=== PATIENT | male | born 1995 | race Caucasian/White ===

== ENCOUNTER 2024-02-20 19:27 | Emergency (ER) | payer MEDICARE, BC, SELFPAY ==
--- NOTE | 2024-02-20 19:22 | ECG_ITS ---
APPROVED REPORT Exam: Resting ECG HR:84 bpm ECG Measurements Heart Rate 84 AXES IL 164 P 23 QRSd 100 QRS 39 QT 343 T 27 QTc 384 Conclusion SINUS RHYTHM NORMAL ECG Electronically signed by : VICKY RESENDIZ, 02/21/2024 00:05:15
[2024-02-20 19:27] VITALS: BP 132/89; PULSE 85; RESP 20; TEMP 37; O2SAT 96; BMI 28.7
--- NOTE | 2024-02-20 19:36 | ED_ITS ---
<Statement entered by Imelda Zuniga DO - 02/20/24 23:39> I was consulted by the SAMANTHA, and we discussed the complexity of the problems being addressed. I approved the treatment and management plan for this patient's care in the emergency department, thus performing a substantive portion of the medical decision making. Imelda Zuniga DO Discharge Plan Disposition Patient Disposition: Home, Self-Care Condition: Good Prescriptions Prescriptions: New doxycycline hyclate 100 mg capsule 100 mg PO BID 10 Days Qty: 20 0RF prednisone 50 mg tablet 50 mg PO DAILY 5 Days Qty: 5 0RF Referrals Follow up/Referrals: Provider,Referral, MD [Primary Care Provider] - See instructions Activity Restrictions/Add. Instructions Additional Instructions/Restrictions: Continue taking antibiotics and steroids to they are gone. Follow-up with your PCP within 48 hours for recheck. Return to ER for any worsening signs or symptoms Clinical Impressions Clinical Impression: Multifocal pneumonia Instructions Patient Instructions: DI for Atypical Pneumonia Print Language Print Language: Chinese Discharge ED Provider: Imelda Zuniga HPI <FREDERICK Betancourt - Last Filed: 02/20/24 22:28> General Stated Complaint: CP Time Seen by Provider: 02/20/24 19:36 History of Present Illness HPI narrative: Patient presents via EMS from [place] reportedly for chest pain. However patient states that he has been feeling poorly and lay down to take a nap. When he awoke he felt worse with bodyaches headache and chest discomfort. He states his chest discomfort is mainly with breathing. He denies cardiac chest pain fever chills hemoptysis hematochezia melena nausea vomiting diarrhea shortness of breath. Related Data Previous Rx's ?Medication ?Instructions ?Recorded doxycycline hyclate 100 mg capsule 100 mg PO BID 10 days #20 caps 02/20/24 prednisone 50 mg tablet 50 mg PO DAILY 5 days #5 tabs 02/20/24 Allergies Allergy/AdvReac Type Severity Reaction Status Date / Time ibuprofen Allergy Unknown Verified 02/20/24 20:25 allergy reaction PFSH <FREDERICK Betancourt - Last Filed: 02/20/24 22:28> [facility] Disclaimer: The information contained in this section may have been updated after the patient was seen, as this information can be updated by other users. Social History Smoking Status: Current every day smoker alcohol intake: never current occupational status: disabled Travel in the last 8 weeks: None <FREDERICK Betancourt - Last Filed: 02/20/24 22:28> ROS Obtained: Yes Systems reviewed as appropriate & no additional complaints except as documented Physical Exam <FREDERICK Betancourt - Last Filed: 02/20/24 22:28> General General appearance: alert and in no apparent distress Respiratory Respiratory exam: Present normal lung sounds bilaterally Cardiovascular Cardiovascular exam: Present regular rate Neurological Exam Neurological exam: Present alert and oriented X3 HEART Score <FREDERICK Betancourt - Last Filed: 02/20/24 22:28> HEART Score HEART Score assessment performed?: Yes History (anamnesis): Slightly suspicious ECG: Normal Age: <45 years Risk factors: 1-2 risk factors Troponin: </= normal limit HEART Score: 1 <Imelda Zuniga DO - Last Filed: 02/20/24 21:46> HEART Score HEART Score: 1 Critical Care <FREDERICK Betancourt - Last Filed: 02/20/24 22:28> Critical Care Time Critical Care Time: No Medical Decision Making <FREDERICK Betancourt - Last Filed: 02/20/24 22:28> Medical Records Medical records reviewed: Yes I reviewed the patient's medical records. Jairo Inquiry Pt receiving controlled substance: No Lab Data Lab results reviewed: Yes I reviewed the patient's lab results. Labs: Lab Results 02/20/24 20:16: SARS-CoV-2 (PCR) Not detected, Influenza A Untype (PCR) Not detected, Influenza Type B (PCR) Not detected 02/20/24 21:37: WBC 7.9, RBC 5.41, Hgb 13.7 L, Hct 41.6 L, MCV 76.9 L, MCH 25.4 L, MCHC 33.0, RDW 16.0, Plt Count 252, MPV 6.8 L, Neut % (Auto) 47.2, Lymph % (Auto) 41.8, [place] % (Auto) 5.7, Eos % (Auto) 3.7, Baso % (Auto) 1.5, Neut # (Auto) 3.7, Lymph # (Auto) 3.3, [place] # (Auto) 0.5, Eos # (Auto) 0.3, Baso # (Auto) 0.1, Sodium 140, Potassium 3.8, Chloride 109 H, Carbon Dioxide 20 L, Anion Gap 14.8, BUN 10, Creatinine 1.00, Estimated GFR 88, Est GFR ( Amer) 106, Glucose 86, Calcium 8.9, Magnesium 2.3, Total Bilirubin 0.5, AST 30, ALT 25, Alkaline Phosphatase 54, Troponin I < 0.01, Total Protein 7.6, Albumin 4.3, Globulin 3.3 H, Albumin/Globulin Ratio 1.3, Lipase 126 02/20/24 21:37 02/20/24 21:37 Response Orders (Tests/Meds): ED MEDICATIONS Generic Name Dose Route Start Last Admin Trade Name Freq PRN Reason Stop Dose Admin Doxycycline Hyclate 100 mg 02/20/24 22:21 Doxycycline Hycl 100 Mg Tablet PO 02/20/24 22:22 ONCE ONE Discontinued Medications Generic Name Dose Route Start Last Admin Trade Name Freq PRN Reason Stop Dose Admin Acetaminophen 1,000 mg 02/20/24 19:51 02/20/24 20:12 Acetaminophen 500mg Tab PO 02/20/24 19:52 1,000 mg ONCE ONE Administration Azithromycin 500 mg 02/20/24 22:04 Azithromycin 250mg Tablet PO 02/20/24 22:05 ONCE ONE Ibuprofen 800 mg 02/20/24 19:51 02/20/24 20:25 Ibuprofen 400 Mg Tablet PO 02/20/24 19:52 Not Given ONCE ONE Prednisone 60 mg 02/20/24 22:04 Prednisone 20mg Tab PO 02/20/24 22:05 ONCE ONE ORDERS Category Date Time Status CT chest wo con Stat Cat Scan 02/20/24 19:52 Completed CBC w/Auto Diff [Complete Blood Count Auto Diff] Stat Lab 02/20/24 21:37 Completed CMP [Comprehensive Metabolic Panel] Stat Lab 02/20/24 21:37 Completed Lipase Stat Lab 02/20/24 21:37 Completed Magnesium Stat Lab 02/20/24 21:37 Completed Rapid PCR Covid and Flu A/B Stat Lab 02/20/24 20:16 Completed Trop I [Troponin I] Stat Lab 02/20/24 21:37 Completed Troponin I Q3H Lab 02/20/24 23:00 Ordered Troponin I Q3H Lab 02/21/24 02:00 Ordered MDM Narrative Medical Decision Narrative: In summary patient is a 28-year-old male who presents to the emergency department for evaluation of myalgias chest pain with breathing headache. Patient is hemodynamically stable upon arrival, afebrile. Physical exam is remarkable for diaphoretic skin but a well-nourished well-developed male who currently is in no acute distress there is no reproducible chest pain on exam. Breath sounds are clear and equal bilaterally to the bases without adventitious sounds. There is no increased work of breathing or accessory muscle use. Heart sounds are normal patient appears to be in normal sinus rhythm on the bedside monitor.. Differential diagnosis includes ACS versus viral bacterial infection etc. Initial workup will be conducted with hematologic labs plain film chest x- ray respiratory swabs. Initial interventions include Toradol Tylenol. Initial workup reviewed by me shows that his hematologic labs are nonactionable, with a normal white count no shift, undetectable troponin, negative COVID and flu, and my informal interpretation of his plain film chest x-ray shows groundglass opacities consistent with atypical infection or bronchitis or both however patient has no objective findings of wheezing or respiratory distress. Additionally as patient's symptoms began several hours prior to presentation and undetectable troponin is low risk and low yield of potential. Cardiac and resolution of symptoms suggest pulmonary primary focus. Upon repeat evaluation the patient reported improvement in his constitutional symptoms. Given this patient is appropriate for discharge with a prescription for steroids and doxycycline with close follow-up with his PCP strict return precaution. <Imelda Zuniga, DO - Last Filed: 02/20/24 21:46> Lab Data Labs: Lab Results 02/20/24 20:16: SARS-CoV-2 (PCR) Not detected, Influenza A Untype (PCR) Not detected, Influenza Type B (PCR) Not detected 02/20/24 21:37: WBC 7.9, RBC 5.41, Hgb 13.7 L, Hct 41.6 L, MCV 76.9 L, MCH 25.4 L, MCHC 33.0, RDW 16.0, Plt Count 252, MPV 6.8 L, Neut % (Auto) 47.2, Lymph % (Auto) 41.8, [place] % (Auto) 5.7, Eos % (Auto) 3.7, Baso % (Auto) 1.5, Neut # (Auto) 3.7, Lymph # (Auto) 3.3, [place] # (Auto) 0.5, Eos # (Auto) 0.3, Baso # (Auto) 0.1, Sodium 140, Potassium 3.8, Chloride 109 H, Carbon Dioxide 20 L, Anion Gap 14.8, BUN 10, Creatinine 1.00, Estimated GFR 88, Est GFR ( Amer) 106, Glucose 86, Calcium 8.9, Magnesium 2.3, Total Bilirubin 0.5, AST 30, ALT 25, Alkaline Phosphatase 54, Troponin I < 0.01, Total Protein 7.6, Albumin 4.3, Globulin 3.3 H, Albumin/Globulin Ratio 1.3, Lipase 126 Response Orders (Tests/Meds): ED MEDICATIONS Generic Name Dose Route Start Last Admin Trade Name Freq PRN Reason Stop Dose Admin Doxycycline Hyclate 100 mg 02/20/24 22:21 Doxycycline Hycl 100 Mg Tablet PO 02/20/24 22:22 ONCE ONE Discontinued Medications Generic Name Dose Route Start Last Admin Trade Name Freq PRN Reason Stop Dose Admin Acetaminophen 1,000 mg 02/20/24 19:51 02/20/24 20:12 Acetaminophen 500mg Tab PO 02/20/24 19:52 1,000 mg ONCE ONE Administration Azithromycin 500 mg 02/20/24 22:04 Azithromycin 250mg Tablet PO 02/20/24 22:05 ONCE ONE Ibuprofen 800 mg 02/20/24 19:51 02/20/24 20:25 Ibuprofen 400 Mg Tablet PO 02/20/24 19:52 Not Given ONCE ONE Prednisone 60 mg 02/20/24 22:04 Prednisone 20mg Tab PO 02/20/24 22:05 ONCE ONE ORDERS Category Date Time Status CT chest wo con Stat Cat Scan 02/20/24 19:52 Completed CBC w/Auto Diff [Complete Blood Count Auto Diff] Stat Lab 02/20/24 21:37 Completed CMP [Comprehensive Metabolic Panel] Stat Lab 02/20/24 21:37 Completed Lipase Stat Lab 02/20/24 21:37 Completed Magnesium Stat Lab 02/20/24 21:37 Completed Rapid PCR Covid and Flu A/B Stat Lab 02/20/24 20:16 Completed Trop I [Troponin I] Stat Lab 02/20/24 21:37 Completed Troponin I Q3H Lab 02/20/24 23:00 Ordered Troponin I Q3H Lab 02/21/24 02:00 Ordered ECG Data Tracing #1: Attestation: I reviewed this ECG and interpreted as documented below: ECG Narrative: Normal sinus rhythm with a ventricular rate of [address] changes concerning for ischemia. Normal axis and intervals. ECG initial impression date: 02/20/24 ECG initial impression time: 19:23
--- NOTE | 2024-02-20 19:52 | CT_ITS ---
PROCEDURE INFORMATION: Exam: CT Chest Without Contrast; Diagnostic Exam date and time: 02/20/2024 7:59 PM Age: 28 years old Clinical indication: Other: Chest pain TECHNIQUE: Imaging protocol: Diagnostic computed tomography of the chest without contrast. Radiation optimization: All CT scans at this facility use at least one of these dose optimization techniques: automated exposure control; mA and/or kV adjustment per patient size (includes targeted exams where dose is matched to clinical indication); or iterative reconstruction. COMPARISON: No relevant prior studies available. FINDINGS: Limitations: Study is technically limited due to motion artifact. Lungs: Lung volumes are decreased likely in part due to body habitus. There are scattered peribronchial micronodular opacities within the mid-lower lung zones likely secondary to bronchiolitis. Small calcified granuloma right lung base. Pleural spaces: Unremarkable. No pneumothorax. No pleural effusion. Heart: Heart is borderline enlarged. No coronary artery calcifications no pericardial effusion. Lymph nodes: Unremarkable. No enlarged lymph nodes. Vasculature: Unremarkable. No aortic aneurysm. Diaphragm: Moderate-sized hiatal hernia. Bones/joints: Unremarkable. No acute fracture. Soft tissues: Unremarkable. IMPRESSION: 1. Scattered bronchiolitis mid-lower lung zones fairly symmetric in distribution likely infectious in nature secondary to aspiration. 2. Moderate-sized hiatal hernia. 3. Borderline cardiomegaly.
[2024-02-20] MEDS: ACETAMINOPHEN 500MG TAB 1000 MG PO (20:12)
[2024-02-20 20:21] LABS: Coronavirus 19, PCR Not Detected (NotDetected); Influenza A, PCR Not Detected (NotDetected); Influenza B, PCR Not Detected (NotDetected)
[2024-02-20 21:46] LABS: Basophils # 0.1 K/mm3 (0-0.2); Basophils % 1.5 % (0.1-2.0); Eosinophils # 0.3 K/mm3 (0.0-0.4); Eosinophils % 3.7 % (0.1-12.0); Hematocrit 41.6 % (42.0-52.0); Hemoglobin 13.7 g/dL (14.1-18.0); Lymphocytes # 3.3 K/mm3 (0.7-4.5); Lymphocytes % 41.8 % (10-50); Mean Corpuscular Hemoglobin 25.4 pg (27.0-31.2); Mean Corpuscular Volume 76.9 fl (80-94); Mean Platelet Volume 6.8 fl (7.4-10.4); Monocytes # 0.5 K/mm3 (0.1-1.0); Monocytes % 5.7 % (1.7-9.3); Neutrophils # 3.7 K/mm3 (1.8-7.8); Neutrophils % 47.2 % (37.0-80.0); Platelet Count 252 K/mm3 (142-424); Red Blood Count 5.41 M/mm3 (4.60-6.20); White Blood Count 7.9 K/mm3 (4.8-10.8)
[2024-02-20 21:59] LABS: Alanine Aminotransferase 25 U/L (12-78); Albumin Level 4.3 g/dl (3.5-5.0); Albumin/Globulin Ratio 1.3 (1.1-1.8); Alkaline Phosphatase 54 U/L (38-126); Anion Gap 14.8 mEq/L (5-15); Aspartate Amino Transferase 30 U/L (17-59); Bilirubin,Total 0.5 mg/dl (0.2-1.3); Blood Urea Nitrogen 10 mg/dl (9-20); Calcium 8.9 mg/dl (8.4-10.2); Carbon Dioxide 20 mmol/L (22.0-30.0); Chloride 109 mmol/L (98-107); Estimated Glomerular Filt Rate 88 ml/min (>60); GFR (African American) 106 ML/MIN (>60); Globulin 3.3 g/dL (1.3-3.2); Glucose 86 mg/dl (74-100); Lipase 126 U/L (23-300); Magnesium 2.3 mg/dl (1.6-2.3); Potassium 3.8 mmoL/L (3.5-5.1); Sodium 140 mmol/L (136-145); Total Protein,Serum 7.6 g/dl (6.3-8.2)
[2024-02-20 22:17] LABS: Troponin I < 0.01 ng/ml (0.00-0.034)
[2024-02-20] MEDS: predniSONE 20MG TAB 60 MG PO (22:28)
[2024-02-20] MEDS: DOXYCYCLINE HYCL 100 MG TABLET PO (22:28)
[2024-02-20] MEDS: AZITHROMYCIN 250MG TABLET 500 MG PO (22:31)
--- NOTE | 2024-02-20 22:57 | PC.NURSE ---
Called [facility] to notify them pt is ready for d/c
[2024-02-20 23:19] VITALS: BP 122/80; PULSE 78; RESP 18; TEMP 36.7; O2SAT 96
[2024-02-20 23:34] LABS: HIV (1&2) Antibody Rapid NONREACTIVE (NONREACTIVE)
--- NOTE | 2024-02-21 09:26 | PC.NURSE ---
accessed chart for facesheet for EMS at this time.
[2024-02-22 10:26] LABS: HCV Ab Non Reactive (Non Reactive)
== END 2024-02-20 23:22 | disposition home or self-care (01) ==
PROVIDERS: Physician Assistant; Emergency Provider Emergency Medicine
DX: J18.9 Pneumonia, unspecified organism (principal); R07.89 Other chest pain; M79.10 Myalgia, unspecified site; R51.9 Headache, unspecified; Z72.0 Tobacco use
CPT/HCPCS: 71250; 80053; 83690; 83735; 84484; 85025; 86803; 87389; 87636; 93005; 99284

== ENCOUNTER 2024-02-29 15:10 | Emergency (ER) | payer MEDICARE, BC, SELFPAY ==
--- NOTE | 2024-02-29 15:07 | ED_ITS ---
<Statement entered by Imelda Zuniga DO - 02/29/24 17:10> I was consulted by the SAMANTHA, and we discussed the complexity of the problems being addressed. I approved the treatment and management plan for this patient's care in the emergency department, thus performing a substantive portion of the medical decision making. Imelda Zuniga DO Discharge Plan Disposition Patient Disposition: Home, Self-Care Condition: Good Chief Complaint: Headache Prescriptions Prescriptions: No Action doxycycline hyclate 100 mg capsule 100 mg PO BID 10 Days Qty: 20 0RF prednisone 50 mg tablet 50 mg PO DAILY 5 Days Qty: 5 0RF Activity Restrictions/Add. Instructions Additional Instructions/Restrictions: Continue to take your headache regimen as already prescribed. Follow-up with your PCP within 48 hours for no improvement or worsening signs or symptoms or recurrence or return to the ER as needed. Clinical Impressions Clinical Impression: Headache, migraine Instructions Patient Instructions: DI for Migraine Print Language Print Language: Azeri Discharge ED Provider: Imelda Zuniga General Adult HPI General Chief complaint: Headache Stated complaint: Headache for 3 days Time Seen by Provider: 02/29/24 15:12 History of Present Illness HPI narrative: Patient presents for evaluation of a migraine headache. Patient has a longstanding history of migraines and takes Topamax daily both for his seizures and for migraine prevention. He has had a right-sided hemispherical headache typical of his other migraines however it is been refractory to his normal regimen of Tylenol and patient cannot take ibuprofen due to adverse reactions. He denies any vision changes changes level of consciousness but does report phonophobia and photophobia. He denies any recent illness chest pain shortness of breath fever chills hemoptysis hematochezia melena vomiting or diarrhea but does report some nausea when it is really bad . Related Data Previous Rx's ?Medication ?Instructions ?Recorded doxycycline hyclate 100 mg capsule 100 mg PO BID 10 days #20 caps 02/20/24 prednisone 50 mg tablet 50 mg PO DAILY 5 days #5 tabs 02/20/24 Allergies Allergy/AdvReac Type Severity Reaction Status Date / Time ibuprofen Allergy Unknown Verified 02/20/24 20:25 allergy reaction [facility] Disclaimer: The information contained in this section may have been updated after the patient was seen, as this information can be updated by other users. Social History (Updated 02/20/24 @ 22:28 by FREDERICK Betancourt) Smoking Status: Current every day smoker alcohol intake: never current occupational status: disabled Travel in the last 8 weeks: None ROS Obtained: Yes Systems reviewed as appropriate & no additional complaints except as documented Physical Exam General General appearance: alert and in no apparent distress Respiratory Respiratory exam: Present normal lung sounds bilaterally Cardiovascular Cardiovascular exam: Present regular rate Neurological Exam Neurological exam: Present alert and oriented X3 Medical Decision Making Medical Records Medical records reviewed: Yes I reviewed the patient's medical records. Screening: Per USPSTF and CDC recommendations, given the prevalence of disease in our region, it is our hospital?s policy to screen for HIV and viral Hepatitis for all patients aged 18 and over and those with ongoing risk factors. Jairo Inquiry Pt receiving controlled substance: No Vital Signs: 02/29/24 15:10 02/29/24 15:15 Temperature 98.2 F Temperature Source Oral Pulse Rate 84 Pulse Rate [Right Radial] 101 H Respiratory Rate 20 Blood Pressure 118/81 Blood Pressure [Right Arm] 124/87 Blood Pressure Mean [Right Arm] 99 02 Sat by Pulse Oximetry 97 97 Oxygen Delivery Method Room Air Orders (Tests/Meds): ED MEDICATIONS Generic Name Dose Route Start Last Admin Trade Name Freq PRN Reason Stop Dose Admin Sodium Chloride 1,000 mls @ 999 mls/hr 02/29/24 15:12 02/29/24 15:30 Sod Chlor 0.9% 1000ml Bag IV 02/29/24 16:12 999 mls/hr .Q1H1M ONE Administration Discontinued Medications Generic Name Dose Route Start Last Admin Trade Name Freq PRN Reason Stop Dose Admin Dexamethasone Sodium Phosphate 10 mg 02/29/24 15:12 02/29/24 15:30 Dexamethasone 4mg/Ml 5ml Mdv IV 02/29/24 15:13 10 mg ONCE ONE Administration Diphenhydramine HCl 50 mg 02/29/24 15:12 02/29/24 15:30 Diphenhydramine 50mg/Ml Vial IV 02/29/24 15:13 50 mg ONCE ONE Administration Methocarbamol 500 mg 02/29/24 15:12 02/29/24 15:30 Methocarbamol 500mg Tablet PO 02/29/24 15:13 500 mg ONCE ONE Administration Prochlorperazine Edisylate 10 mg 02/29/24 15:12 11/20/24 15:30 Prochlorperazine 10mg/2ml Vial IV 02/29/24 15:13 10 mg ONCE ONE Administration Medical Decision Narrative: In summary patient is a 28-year-old male who presents to the emergency department for evaluation of migraine headache. Patient is hemodynamically stable upon arrival, afebrile. Physical exam is remarkable for photophobia and phonophobia but Candice Coma Score 15 patient is awake alert and oriented person place circumstance has no focal neurologic deficits no nuchal rigidity pupils equal round reactive to light with no pain with extraocular movements. Differential diagnosis includes flare of chronic migraine versus headache of other type etc. Initial workup with labs and imaging was considered however there are no red flags that this is anything other than a flare of his chronic migraines thus deferred further workup. Initial interventions include crystalloid bolus Decadron diphenhydramine Robaxin and Compazine. Upon repeat evaluation patient had complete resolution of his headache after initial intervention. Given this patient is appropriate for discharge with follow-up with his PCP in 48 hours for recheck for any worsening signs or symptoms. Critical Care Critical Care Time Critical Care Time: No
[2024-02-29 15:10] VITALS: BP 124/87; PULSE 101; RESP 20; TEMP 36.8; O2SAT 97; BMI 38.7
[2024-02-29 15:15] VITALS: BP 118/81; PULSE 84; O2SAT 97
[2024-02-29] MEDS: PROCHLORPERAZINE 10MG/2ML VIAL 10 MG IV (15:30)
[2024-02-29] MEDS: DEXAMETHASONE 4MG/ML 5ML MDV 10 MG IV (15:30)
[2024-02-29] MEDS: METHOCARBAMOL 500MG TABLET 500 MG PO (15:30)
[2024-02-29] MEDS: 0.9 % SODIUM CHLORIDE 1000ML 1,000 ML 999 ML IV (15:30)
[2024-02-29] MEDS: diphenhydrAMINE 50MG/ML VIAL 50 MG IV (15:30)
[2024-02-29 16:14] VITALS: BP 118/82; PULSE 77; RESP 18; TEMP 36.7; O2SAT 98
--- NOTE | 2024-02-29 16:17 | PC.NURSE ---
Notified [facility] that patient is ready for discharge.
== END 2024-02-29 16:40 | disposition home or self-care (01) ==
PROVIDERS: Emergency Provider Emergency Medicine
DX: G43.909 Migraine, unspecified, not intractable, without status migrainosus (principal); R11.0 Nausea
CPT/HCPCS: 96361; 96374; 96375; 99283; J0780; J1100; J1200; J7030

== ENCOUNTER 2024-03-12 19:11 | Emergency (ER) | payer MEDICARE, BC, SELFPAY ==
[2024-03-12 19:16] VITALS: BP 124/70; PULSE 87; RESP 18; TEMP 36.9; O2SAT 97; BMI 37.5
--- NOTE | 2024-03-12 19:33 | HMH.EDGENADL ---
Discharge Plan Disposition Patient Disposition: Xfer Other Condition: Good Prescriptions Prescriptions: No Action doxycycline hyclate 100 mg capsule 100 mg PO BID 10 Days Qty: 20 0RF prednisone 50 mg tablet 50 mg PO DAILY 5 Days Qty: 5 0RF Referrals Follow up/Referrals: Costa Tinoco APRN [Primary Care Provider] - See instructions Activity Restrictions/Add. Instructions Additional Instructions/Restrictions: You were evaluated in the emergency department today. Please follow-up closely with your primary care provider. You may benefit from referral to neurology on an outpatient basis given your recurrent migraines. Continue taking your medications at home as prescribed. Return to the emergency department for new or worsening symptoms. Clinical Impressions Clinical Impression: Migraine Instructions Patient Instructions: DI for Migraine Print Language Print Language: Bulgarian Discharge ED Provider: Imelda Zuniga General Adult HPI General Chief complaint: Headache Stated complaint: Headache Time Seen by Provider: 03/12/24 19:15 Mode of Arrival: Ambulatory Source of Information: Patient Limitations: No Limitations Description of Symptoms (Recalled from ER Triage Doc. by RN): head ache n/v History of Present Illness HPI narrative: This patient is a 28-year-old male with a history of migraines for which he is on Topamax presenting to the emergency department for evaluation with concern for headache. He notes it is the typical presentation of his migraines in the past, consisting of right sided head throbbing and pain. No new features. He notes that he has had no fevers or infectious symptoms. No other concerns noted at this time. Related Data Previous Rx's ?Medication ?Instructions ?Recorded doxycycline hyclate 100 mg capsule 100 mg PO BID 10 days #20 caps 02/20/24 prednisone 50 mg tablet 50 mg PO DAILY 5 days #5 tabs 02/20/24 Allergies Allergy/AdvReac Type Severity Reaction Status Date / Time ibuprofen Allergy Unknown Verified 02/20/24 20:25 allergy reaction [facility] Disclaimer: The information contained in this section may have been updated after the patient was seen, as this information can be updated by other users. Social History Smoking Status: Never smoker alcohol intake: never current occupational status: disabled Travel in the last 8 weeks: None ROS Obtained: Yes All systems reviewed & no additional complaints except as documented Physical Exam General General appearance: alert and in no apparent distress Head Head exam: atraumatic and normocephalic Eye Eye exam: Present normal appearance, PERRL and EOMI ENT ENT exam: Present normal exam, normal oropharynx, mucous membranes moist and normal external ear exam Neck Neck exam: Present normal inspection, full ROM and trachea midline; Absent tenderness Chest Chest inspection: Present normal inspection and symmetric chest wall rise; Absent tenderness Respiratory Respiratory exam: Present normal lung sounds bilaterally; Absent respiratory distress, wheezes, stridor or accessory muscle use Cardiovascular Cardiovascular exam: Present regular rate and normal rhythm Abdominal Exam Abdominal exam: Present soft; Absent distention, tenderness or guarding Extremities Exam Extremities exam: Present normal inspection, full ROM and normal capillary refill; Absent tenderness or edema Back Exam Back exam: Present normal inspection and full ROM; Absent tenderness Neurological Exam Neurological exam: Present alert, oriented X3, CN II-XII intact and normal gait; Absent motor sensory deficit Psychiatric Psychiatric exam: Present normal affect and normal mood Skin Skin exam: Present warm and dry Medical Decision Making Medical Records Medical records reviewed: Yes I reviewed the patient's medical records. Screening: Per USPSTF and CDC recommendations, given the prevalence of disease in our region, it is our hospital?s policy to screen for HIV and viral Hepatitis for all patients aged 18 and over and those with ongoing risk factors. [place] Inquiry Pt receiving controlled substance: No Vital Signs: 03/12/24 19:16 03/12/24 20:51 Temperature 98.5 F 98.6 F Temperature Source Oral Oral Pulse Rate 67 Pulse Rate [Right Radial] 87 Respiratory Rate 18 18 Blood Pressure 109/71 L Blood Pressure [Right Arm] 124/70 Blood Pressure Mean [Right Arm] 88 Blood Pressure Source Automatic Cuff Blood Pressure Position Supine 02 Sat by Pulse Oximetry 97 Oxygen Delivery Method Room Air Room Air Lab Data Lab results reviewed: Yes I reviewed the patient's lab results. Orders (Tests/Meds): ED MEDICATIONS Discontinued Medications Generic Name Dose Route Start Last Admin Trade Name Freq PRN Reason Stop Dose Admin Acetaminophen 1,000 mg 03/12/24 19:31 03/12/24 19:36 Acetaminophen 500mg Tab PO 03/12/24 19:32 1,000 mg ONCE ONE Administration Dexamethasone Sodium Phosphate 10 mg 03/12/24 19:27 03/12/24 19:37 Dexamethasone 4mg/Ml 1ml Vial IV 12/02/24 19:28 10 mg ONCE ONE Administration Diphenhydramine HCl 25 mg 03/12/24 19:27 03/12/24 19:36 Diphenhydramine 50mg/Ml Vial IV 03/12/24 19:28 25 mg ONCE ONE Administration Sodium Chloride 1,000 mls @ 999 mls/hr 03/12/24 19:31 03/12/24 19:36 Sod Chlor 0.9% 1000ml Bag IV 03/12/24 20:31 999 mls/hr .Q1H1M ONE Administration Prochlorperazine Edisylate 10 mg 03/12/24 19:27 03/12/24 20:00 Prochlorperazine 10mg/2ml Vial IV 03/12/24 19:28 10 mg ONCE ONE Administration Medical Decision Narrative: In summary, this patient is a 28-year-old male presenting to the Emergency Department for evaluation of migraine. Differential diagnoses considered include but are not limited to migraine, tension headache, rebound headache. Ruling out the most morbid conditions drove assessment. It should be noted patient's history includes migraines and seizures which likely are not at goal therapy. This complicates all aspects of care by increasing patient's risk for morbidity. I reviewed patient's past medical records and noted evaluation for migraine in the past last month. On exam, the patient is sitting upright in no acute distress. He is neurologically intact. He notes no new features from prior migraines, no recent trauma, no infectious symptoms. 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 He is agreeable to receive migraine cocktail, consisting of Compazine, Benadryl, dexamethasone, Tylenol, and IV fluids. On reassessment, the patient is resting comfortably with resolution of his migraine and is feeling a lot better. Given this, I feel it is appropriate for discharge back to his facility. He resides at [facility]. He was given instructions for close follow-up with primary care as well as referral to neurology. He was given strict return precautions and was discharged after all questions were answered. Critical Care Critical Care Time Critical Care Time: No
[2024-03-12] MEDS: ACETAMINOPHEN 500MG TAB 1000 MG PO (19:36)
[2024-03-12] MEDS: diphenhydrAMINE 50MG/ML VIAL 25 MG IV (19:36)
[2024-03-12] MEDS: 0.9 % SODIUM CHLORIDE 1000ML 1,000 ML 999 ML IV (19:36)
[2024-03-12] MEDS: DEXAMETHASONE 4MG/ML 1ML VIAL 10 MG IV (19:37)
[2024-03-12] MEDS: PROCHLORPERAZINE 10MG/2ML VIAL 10 MG IV (20:00)
--- NOTE | 2024-03-12 20:02 | PC.NURSE ---
Pain level 1 on 1-10 scale now after medications
[2024-03-12 20:51] VITALS: BP 109/71; PULSE 67; RESP 18; TEMP 37; O2SAT 96
--- NOTE | 2024-03-12 20:58 | PC.NURSE ---
Pt awaiting transportation to facility
== END 2024-03-12 21:03 | disposition other institution (70) ==
PROVIDERS: Emergency Provider Emergency Medicine; PCP Nurse Practitioner Acute Care
DX: G43.909 Migraine, unspecified, not intractable, without status migrainosus (principal); R11.2 Nausea with vomiting, unspecified
CPT/HCPCS: 96361; 96374; 96375; 99284; J0780; J1100; J1200; J7030